=== PATIENT | female | born 1940 | race Two or more races ===

== ENCOUNTER 2017-05-30 19:40 | Emergency (ER) | payer OTHER ==
[~2017-05-30] VITALS: Ht 152.4 cm; Wt 65.8 kg
--- NOTE | 2017-05-30 19:54 | NUR ---
BB FAMILY; DOG RIGHT WRIST YESTERDAY. TODAY REDNESS/ SWELLING ON RIGHT WRSIT WAS NOTED. LAST TETANUS SHOT WAS 2005. VSS, AFEBRILE
[2017-05-30 20:13] VITALS: BP 152/73
--- NOTE | 2017-05-30 20:13 | NUR ---
MD YOUNG AT
[2017-05-30] MEDS ORDERED: AMOX/CLAVULANATE 875 MG TABLET ONE (20:15)
[2017-05-30] MEDS ORDERED: TDAP [DIPH/PERTUSSIS/TET] 0.5 ML VIAL IM ONE ×2 (20:16→20:30)
--- NOTE | 2017-05-30 20:28 | NUR ---
Patient discharged to home in stable condition. Written and verbal after care instructions given. Patient verbalizes understanding of instruction. PT ambulatory with a steady gait VITAL SIGNS WITHIN NORMAL LIMITS.
[2017-05-30] MEDS ORDERED: AMOX/CLAVULANATE 875 MG TABLET PO ONE (20:30)
== END 2017-05-30 20:43 | disposition home or self-care (01) ==
LOC: ER 19:45
DX: S61.551A Open bite of right wrist, initial encounter (principal); I10 Essential (primary) hypertension; W54.0XXA Bitten by dog, initial encounter; Y93.89 Activity, other specified; Y92.89 Other specified places as the place of occurrence of the external cause; Y99.9 Unspecified external cause status
CPT/HCPCS: 90471; 90715; 99283; A4606; Z7610